=== PATIENT | male | born 1960 | race American Indian/Alaskan Native ===

== ENCOUNTER 2019-10-19 15:56 | Observation (INO) | payer OTHER ==
[2019-10-19] MEDS ORDERED: ASPIRIN 325 MG TAB PO ONE (17:42)
--- NOTE | 2019-10-19 17:46 | Event Note ---
ED Screening Note ED Screening Note: epigastric pain for several days. sent by PCP because of fliupped T waves laterally. pt with recent his of "fluid below lungs" but no formal CHF hx This initial assessment/diagnostic orders/clinical plan/treatment(s) is/are subject to change based on patients health status, clinical progression and re-assessment by fellow clinical providers in the ED. Further treatment and workup at subsequent clinical providers discretion. Patient/guardian urged not to elope from the ED as their condition may be serious if not clinically assessed and managed. Initial orders include: cmp, cbc, trop ekg CXR
--- NOTE | 2019-10-19 18:27 | XRay Report ---
CHEST 2 VIEWS INDICATION / CLINICAL INFORMATION: MAIN: Chest Pain; Pt presents by referral of PCP for abnormal EKG. Pt. denies CP but reports upper a bdominal pain and SOB. HX OF HEART ATTACK X 15 YRS. COMPARISON: None available. FINDINGS: SUPPORT DEVICES: None. HEART / MEDIASTINUM: Moderately enlarged LUNGS / PLEURA: There is venous congestion with interstitial edema. There is prominence of the right paratracheal region and right hilum as well and there could not exclude adenopathy in this area. No f ocal alveolar consolidation. No pneumothorax. ADDITIONAL FINDINGS: No significant additional findings. IMPRESSION: 1. I suspect early heart failure. Signer Name: Jadon Vincent MD Signed: 10/19/2019 6:23 PM Workstation Name: [id number]
[2019-10-19] MEDS ORDERED: ALUM-MAG HYDROXIDE-SIMETHICONE 200-200-20MG/5ML ORAL LIQD 30 ML PO ONE (18:37)
[2019-10-19] MEDS ORDERED: LIDOCAINE VISCOUS 2% 15 ML ORAL LIQD PO ONE (18:37)
[2019-10-19] MEDS ORDERED: FAMOTIDINE 20 MG/2 ML INJ IV ONE (18:37)
[2019-10-19 18:43] LABS: Basophils # (Auto) 0.1 K/mm3 (0.0-0.1); Eosinophils # (Auto) 0.1 K/mm3 (0.0-0.4); Eosinophils % (Auto) 1.6 % (0.0-4.3); Hematocrit 42.8 % (35.5-45.6); Hemoglobin 13.8 gm/dl (11.8-15.2); Lymphocytes # (Auto) 1.9 K/mm3 (1.2-5.4); Lymphocytes % (Auto) 25.4 % (13.4-35.0); Mean Corpuscular HGB Conc 32 % (32-34); Mean Corpuscular Volume 88 fl (84-94); Monocytes % (Auto) 14.1 % (0.0-7.3); Platelet Count 194 K/mm3 (140-440); Red Blood Count 4.85 M/mm3 (3.65-5.03); Red Cell Distribution Width 16.3 % (13.2-15.2)
[2019-10-19 19:03] LABS: Alanine Aminotransferase 26 units/L (7-56); BUN/Creatinine Ratio 17; Blood Urea Nitrogen 22 mg/dL (9-20); Calcium 9.2 mg/dL (8.4-10.2); Hemolysis Index 17
[2019-10-19] MEDS ORDERED: FUROSEMIDE 40 MG/4 ML INJ IV ONE (19:13)
--- NOTE | 2019-10-19 19:17 | Emergency Department Report ---
ED General Adult HPI - General Chief complaint: Dyspnea/Respdistress Stated complaint: EKG ABNORMAL Source: patient Mode of arrival: Ambulatory Limitations: No Limitations - History of Present Illness Initial comments: Patient is 59 yo AA male with a H/O CAD, HTN and chronic alcoholic who presents to the ED with c/o acute onset persistent epigastric pain and pressure, dyspnea and nausea for the last 5 days after heavy alcohol consumptions during Super Bowl celebration. Patient states that he has not been able to eat anything due to nausea and epigastric discomfort. Patient denies dizziness, fever, chills, diarrhea, headache, cough, dysuria, vision changes, palpitations, headache or hematemesis and chest pain MD Complaint: dyspnea, epigastric discomfort and pressure -: Sudden, days(s) (5) Location: abdomen Radiation: non-radiation Severity scale (0 -10): 4 Quality: aching, dull Consistency: constant Improves with: none Worsens with: none Associated Symptoms: denies other symptoms, loss of appetite, malaise, shortness of breath. denies: confusion, chest pain, cough, diaphoresis, nausea/vomiting, rash, seizure, syncope, weakness Treatments Prior to Arrival: none - Related Data Allergies Allergy/AdvReac Type Severity Reaction Status Date / Time No Known Allergies Allergy Unverified 10/19/19 16:07 ED Review of Systems ROS: Stated complaint: EKG ABNORMAL Other details as noted in HPI Constitutional: denies: chills, fever Eyes: denies: eye pain, eye discharge, vision change ENT: denies: ear pain, throat pain Respiratory: shortness of breath. denies: cough, wheezing Cardiovascular: denies: chest pain, palpitations Endocrine: no symptoms reported Gastrointestinal: abdominal pain (epigastric pressure and tightness), nausea, vomiting. denies: diarrhea Genitourinary: denies: urgency, dysuria Musculoskeletal: denies: back pain, joint swelling, arthralgia Skin: denies: rash, lesions Neurological: denies: headache, weakness, paresthesias Psychiatric: denies: anxiety, depression Hematological/Lymphatic: denies: easy bleeding, easy bruising ED Past Medical Hx - Past Medical History Previous Medical History?: Yes Hx Hypertension: Yes - Surgical History Past Surgical History?: Yes - Social History Smoking Status: Current Every Day Smoker Substance Use Type: Alcohol ED Physical Exam - General Limitations: No Limitations General appearance: alert, in no apparent distress - Head Head exam: Present: atraumatic, normocephalic, normal inspection - Eye Eye exam: Present: normal appearance, PERRL, EOMI Pupils: Present: normal accommodation - ENT ENT exam: Present: normal exam, normal orophraynx, mucous membranes moist, TM's normal bilaterally, normal external ear exam - Neck Neck exam: Present: normal inspection, full ROM - Respiratory Respiratory exam: Present: normal lung sounds bilaterally. Absent: respiratory distress, wheezes, rales, rhonchi, chest wall tenderness, accessory muscle use, decreased breath sounds, prolonged expiratory - Cardiovascular Cardiovascular Exam: Present: regular rate, normal rhythm, normal heart sounds. Absent: systolic murmur, diastolic murmur, rubs, gallop - GI/Abdominal GI/Abdominal exam: Present: soft, tenderness (Palpable epigastric and RUQ mild tendernesss), hyperactive bowel sounds. Absent: distended - Extremities Exam Extremities exam: Present: normal inspection, full ROM, normal capillary refill - Back Exam Back exam: Present: normal inspection, full ROM. Absent: tenderness, CVA tenderness (R), CVA tenderness (L), muscle spasm, vertebral tenderness - Neurological Exam Neurological exam: Present: alert, oriented X3, CN II-XII intact, normal gait, reflexes normal - Psychiatric Psychiatric exam: Present: normal affect, normal mood - Skin Skin exam: Present: warm, dry, intact, normal color. Absent: rash ED Course Vital Signs 10/19/19 10/19/19 10/19/19 16:06 18:31 19:30 Temperature 98.0 F Pulse Rate 71 66 66 Respiratory 18 16 18 Rate Blood Pressure 194/108 Blood Pressure 206/122 205/124 [Left] O2 Sat by Pulse 96 99 96 Oximetry ED Medical Decision Making - Lab Data Result diagrams: 10/19/19 18:16 10/19/19 18:16 - Radiology Data Radiology results: report reviewed, image reviewed Findings [facility] [address] [place] [address] Ultrasound Report Signed Patient: GAEL COLLINS MR#: [id number] : 1960 Acct:[id number] Age/Sex: 59 / M ADM Date: 10/19/19 Loc: ED Attending Dr: Ordering Physician: LUAN CAMPOVERDE Date of Service: 10/19/19 Procedure(s): US abdomen limited Accession Number(s): [id number] cc: LUAN CAMPOVERDE LIMITED RUQ ABDOMINAL ULTRASOUND INDICATION: epigastric discomfort. COMPARISON: No relevant prior imaging study available. FINDINGS: Pancreas: Visualized portions show no significant abnormality. Abdominal Aorta: No significant abnormality. IVC: No significant abnormality. Liver: Normal. Gallbladder: Normal. Sonographic Blair's sign: Not performed. Bile ducts: Normal. Common bile duct measures 3 mm. Free fluid: None. Additional Findings: None. IMPRESSION: 1. Normal exam. Signer Name: Dominik Padron MD Signed: 10/19/2019 9:11 PM Workstation Name: [id number] Transcribed By: RAYMUNDO Dictated By: Dominik Padron MD Electronically Authenticated By: Dominik Padron MD Signed Date/Time: 10/19/192110 DD/ 10 TD/TT: Findings [facility] [address] [place] [address] XRay Report Signed Patient: GAEL COLLINS MR#: [id number] : 1960 Acct:[id number] Age/Sex: 59 / M ADM Date: 10/19/19 Loc: ED Attending Dr: Ordering Physician: BRIDGETTE FRYE MD Date of Service: 10/19/19 Procedure(s): XR chest routine 2V Accession Number(s): [id number] cc: BRIDGETTE FRYE MD Fluoro Time In Minutes: CHEST 2 VIEWS INDICATION / CLINICAL INFORMATION: MAIN: Chest Pain; Pt presents by referral of PCP for abnormal EKG. Pt. denies CP but reports upper abdominal pain and SOB. HX OF HEART ATTACK X 15 YRS. COMPARISON: None available. FINDINGS: SUPPORT DEVICES: None. HEART / MEDIASTINUM: Moderately enlarged LUNGS / PLEURA: There is venous congestion with interstitial edema. There is prominence of the right paratracheal region and right hilum as well and there could not exclude adenopathy in this area. No focal alveolar consolidation. No pneumothorax. ADDITIONAL FINDINGS: No significant additional findings. IMPRESSION: 1. I suspect early heart failure. Signer Name: Jadon Vincent MD Signed: 10/19/2019 6:23 PM Workstation Name: [id number] Transcribed By: ISABEL Dictated By: Jadon Vincent MD Electronically Authenticated By: Jadon Vincent MD Signed Date/Time: 10/19/191822 DD/ 21 TD/TT: - Medical Decision Making This is 59 yo AA male with a H/O CAD, HTN and chronic alcoholic who presents to the ED with c/o acute onset persistent epigastric pain and pressure, dyspnea and nausea for the last 5 days after heavy alcohol consumptions during Super Bowl celebration. Patient states that he has not been able to eat anything due to nausea and epigastric discomfort. In the ED patient is alert and oriented x 3 and is in no acute distress. The chest x-ray shows a venous congestion with interstitial edema. There is prominence of the right paratracheal region and right hilum as well and there could not exclude adenopathy in this area. No focal alveolar consolidation. No pneumothorax. The Gallbladder US is unremarkable. Lab test results were reviewed and shows a BUN of 22, BNP of 4645 and Lipase of 135. Patient was treated in the ED with aspirin, also given Lasix 40mg IV x 1. These findings were discussed with the ED attending physician Dr. Abdi who agreed with plan of care. Patient's case was discussed with the Hospitalist physician reporting consultant Dr. Maciel who admitted the patient to the [facility] for further evaluation. - Differential Diagnosis CHF, CAD, Pancreatitis; Gallstones; GERD; Pneumonia Critical care attestation.: If time is entered above; I have spent that time in minutes in the direct care of this critically ill patient, excluding procedure time. ED Disposition Clinical Impression: Acute epigastric pain, Shortness of breath on exertion Acute pancreatitis Qualifiers: Pancreatitis type: alcohol induced Acute pancreatitis complication: unspecified Qualified Code(s): K85.20 - Alcohol induced acute pancreatitis without necrosis or infection CHF exacerbation Qualifiers: Heart failure type: unspecified Qualified Code(s): I50.9 - Heart failure, unspecified Disposition: OP ADMIT IP TO THIS HOSP Is pt being admited?: Yes Does the pt Need Aspirin: No Condition: Stable Instructions: Heart Failure (ED) Referrals: BEN CHIANG NP [Primary Care Provider] - 3-5 Days Time of Disposition: 22:20 Print Language: JAPANESE
--- NOTE | 2019-10-19 21:16 | Ultrasound Report ---
LIMITED RUQ ABDOMINAL ULTRASOUND INDICATION: epigastric discomfort. COMPARISON: No relevant prior imaging study available. FINDINGS: Pancreas: Visualized portions show no significant abnormality. Abdominal Aorta: No significant abnormality. IVC: No significant abnormality. Liver: Normal. Gallbladder: Normal. Sonographic Blair's sign: Not performed. Bile ducts: Normal. Common bile duct measures 3 mm. Free fluid: None. Additional Findings: None. IMPRESSION: 1. Normal exam. Signer Name: Dominik Padron MD Signed: 10/19/2019 9:11 PM Workstation Name: [id number]
[2019-10-19] MEDS ORDERED: ACETAMINOPHEN 325 MG TAB PO PRN (23:19)
[2019-10-19] MEDS ORDERED: ONDANSETRON 4 MG/2 ML INJ IV PRN (23:19)
[2019-10-19] MEDS ORDERED: MORPHINE 2 MG/1 ML INJ IV PRN (23:19)
--- NOTE | 2019-10-20 01:36 | History and Physical Report ---
History of Present Illness Date of examination: 10/19/19 Date of admission: 10/19/19 22:20 Chief complaint: 10/19/2019 History of present illness: 59-year-old -[place] male with known history of hypertension and [place] about 15 years ago presenting to the emergency room today complaining of epigastric discomfort and nausea over the past 5 days. He has also been having shortness of breath but denies any chest pain. He has had decreased appetite and has not been eating well over the past 5 days. Denies any fever or chills, no diarrhea, no headache or dizziness, no vomiting. He however admits that he has been drinking a lot of alcohol over the past few days starting on the Super Bowl night. Upon evaluation in the emergency room his work-up was significant for elevated lipase levels, elevated BNP, chest x-ray findings suggestive of heart failure. He had IV Lasix in the emergency room. He also has some analgesic medication with some relief. Past History Past Medical History: heart failure, hypertension Past Surgical History: Other (Right knee surgery, back surgery,throat surgery) Social history: smoking (current everyday smoker), alcohol abuse Family history: diabetes (in grand parents) Medications and Allergies Allergies Allergy/AdvReac Type Severity Reaction Status Date / Time No Known Allergies Allergy Unverified 10/19/19 16:07 Active Meds: Active Medications Acetaminophen (Tylenol) 650 mg PO Q4H PRN PRN Reason: Pain MILD(1-3)/Fever >100.5/ORELLANA Furosemide (Lasix) 40 mg IV BID@0600,1800 HENRY Morphine Sulfate (Morphine) 2 mg IV Q5MIN PRN PRN Reason: Chest Pain unrelieved by NTG Ondansetron HCl (Zofran) 4 mg IV Q8H PRN PRN Reason: Nausea And Vomiting Sodium Chloride (Sodium Chloride Flush Syringe 10 Ml) 10 ml IV BID HENRY Sodium Chloride (Sodium Chloride Flush Syringe 10 Ml) 10 ml IV PRN PRN PRN Reason: LINE FLUSH Review of Systems Constitutional: no fever, no chills Cardiovascular: no chest pain, no palpitations Respiratory: shortness of breath, no cough Gastrointestinal: abdominal pain, dyspepsia/bloating, no nausea, no vomiting Genitourinary Male: no dysuria, no hematuria Musculoskeletal: no neck pain, no low back pain Integumentary: no rash, no pruritis Neurological: no headaches, no change in mentation Exam - Constitutional Vitals: Temp Pulse Resp BP Pulse Ox 98.1 F 65 18 190/89 96 10/19/19 23:00 10/19/19 23:00 10/19/19 23:00 10/19/19 23:00 10/19/19 23:00 General appearance: Present: no acute distress, well-nourished - EENT Eyes: Present: PERRL, EOM intact ENT: hearing intact, clear oral mucosa, dentition normal - Neck Neck: Present: supple, normal ROM - Respiratory Respiratory: bilateral: CTA - Cardiovascular Rhythm: regular Heart Sounds: Present: S1 & S2, systolic murmur - Extremities Extremities: no ischemia, pulses intact, No edema, Full ROM Peripheral Pulses: within normal limits - Abdominal General gastrointestinal: Present: soft, tender, non-distended, normal bowel sounds Localized gastrointestinal: tender: RUQ - Integumentary Integumentary: Present: clear, warm, dry - Musculoskeletal Musculoskeletal: strength equal bilaterally - Psychiatric Psychiatric: appropriate mood/affect, intact judgment & insight, cooperative - Neurologic Neurologic: CNII-XII intact, moves all extremities Results - Labs CBC & Chem 7: 10/20/19 04:24 10/20/19 04:24 Labs: Abnormal lab results 10/19/19 10/19/19 10/19/19 Range/Units 18:16 18:16 18:16 RDW 16.3 H (13.2-15.2) % [place] % (Auto) 14.1 H (0.0-7.3) % [place] # 1.0 H (0.0-0.8) K/mm3 BUN 22 H (9-20) mg/dL Total Bilirubin 1.90 H (0.1-1.2) mg/dL NT-Pro-B Natriuret Pep 4645 H (0-900) pg/mL Lipase (13-60) units/L 10/19/19 Range/Units 18:16 RDW (13.2-15.2) % [place] % (Auto) (0.0-7.3) % [place] # (0.0-0.8) K/mm3 BUN (9-20) mg/dL Total Bilirubin (0.1-1.2) mg/dL NT-Pro-B Natriuret Pep (0-900) pg/mL Lipase 135 H (13-60) units/L Assessment and Plan - Patient Problems (1) CHF (congestive heart failure) Current Visit: Yes Status: Acute Plan to address problem: Possibly new onset. Patient was started on IV diuretics. Will monitor daily weights and also monitor input and output. We will schedule patient for echocardiogram and also place a consult to cardiology for evaluation and recommendation. (2) Acute epigastric pain Current Visit: Yes Status: Acute Plan to address problem: Possibly secondary to pancreatitis. Patient currently n.p.o. we will place on analgesic medication. (3) Acute pancreatitis Current Visit: Yes Status: Acute Qualifiers: Pancreatitis type: alcohol induced Acute pancreatitis complication: unspecified Qualified Code(s): K85.20 - Alcohol induced acute pancreatitis without necrosis or infection Plan to address problem: Possibly secondary to alcohol abuse. Will place patient on analgesic medication . Will hold off on IV fluid in view of his heart failure. We will monitor lipase levels. (4) DVT prophylaxis Current Visit: Yes Status: Acute Plan to address problem: Patient placed on subcutaneous heparin. (5) Full code status Current Visit: Yes Status: Acute
[2019-10-20 05:18] LABS: Basophils % (Auto) 0.3 % (0.0-1.8); Eosinophils # (Auto) 0.1 K/mm3 (0.0-0.4); Eosinophils % (Auto) 1.4 % (0.0-4.3); Hemoglobin 14.2 gm/dl (11.8-15.2); Lymphocytes # (Auto) 2.2 K/mm3 (1.2-5.4); Lymphocytes % (Auto) 33.9 % (13.4-35.0); Mean Corpuscular HGB Conc 33 % (32-34); Mean Corpuscular Volume 88 fl (84-94); Monocytes # (Auto) 0.8 K/mm3 (0.0-0.8); Platelet Count 166 K/mm3 (140-440); Red Blood Count 4.89 M/mm3 (3.65-5.03); Red Cell Distribution Width 16.4 % (13.2-15.2)
[2019-10-20 05:30] LABS: INR 1.06 (0.87-1.13)
[2019-10-20 05:31] LABS: Partial Thromboplastin Time 32.5 Sec. (24.2-36.6)
[2019-10-20 05:33] LABS: BUN/Creatinine Ratio 16; Blood Urea Nitrogen 19 mg/dL (9-20); Calcium 9.4 mg/dL (8.4-10.2); Hemolysis Index 1
[2019-10-20] MEDS ORDERED: HEPARIN 5,000 UNIT/1 ML VIAL SUB-Q SCH (06:00)
[2019-10-20] MEDS ORDERED: FUROSEMIDE 40 MG/4 ML INJ IV SCH (06:00)
[2019-10-20] MEDS ORDERED: hydrALAZINE 10 MG TAB PO PRN (07:13)
--- NOTE | 2019-10-20 09:16 | Consultation ---
History of Present Illness Consult date: 10/20/19 Requesting physician: JOMAR PRATT Consult reason: congestive heart failure History of present illness: 59-year-old -[place] male with history of hypertension hyperlipidemia known coronary arterial disease states having a cardiac cath at [facility] few months ago which revealed left main patent LAD patent circumflex. RCA 100% with collateralization with mild LV dysfunction. 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 Patient does have hypertensive urgency but states that his blood pressure is normal at home. Denies any chest pain nausea vomiting syncope or palpitations Past History Past Medical History: CAD, heart failure, hypertension, hyperlipidemia Past Surgical History: Other (Right knee surgery, back surgery,throat surgery) Social history: smoking (current everyday smoker), alcohol abuse Family history: diabetes (in grand parents) Medications and Allergies Allergies Allergy/AdvReac Type Severity Reaction Status Date / Time No Known Allergies Allergy Unverified 10/19/19 16:07 Home Medications Medication Instructions Recorded Confirmed Last Taken Type Aspirin [Aspirin BABY CHEW TAB] 81 mg PO QDAY 10/20/19 10/20/19 Unknown History AtorvaSTATin [Lipitor] 20 mg PO QDAY 10/20/19 10/20/19 Unknown History Furosemide [Lasix] 20 mg PO QDAY 10/20/19 10/20/19 Unknown History Lisinopril [Zestril TAB] 12.5 mg PO QDAY 10/20/19 10/20/19 Unknown History carvediloL [Coreg] 12.5 mg PO BID 10/20/19 10/20/19 Unknown History Active Meds: Active Medications Acetaminophen (Tylenol) 650 mg PO Q4H PRN PRN Reason: Pain MILD(1-3)/Fever >100.5/ORELLANA Aspirin (Baby Aspirin) 81 mg PO QDAY HENRY Atorvastatin Calcium (Lipitor) 20 mg PO QDAY [facility] Carvedilol (Coreg) 12.5 mg PO BID HENRY Furosemide (Lasix) 20 mg PO QDAY [facility] Heparin Sodium (Porcine) (Heparin) 5,000 unit SUB-Q Q8HR [facility] Last Admin: 10/20/19 06:08 Dose: 5,000 unit Documented by: Hydralazine HCl (Apresoline) 10 mg PO Q4H PRN PRN Reason: elevated BP Last Admin: 10/20/19 07:48 Dose: 10 mg Documented by: Lisinopril (Zestril) 10 mg PO BID [facility] Morphine Sulfate (Morphine) 2 mg IV Q5MIN PRN PRN Reason: Chest Pain unrelieved by NTG Ondansetron HCl (Zofran) 4 mg IV Q8H PRN PRN Reason: Nausea And Vomiting Potassium Chloride (K-Dur) 20 meq PO ONCE ONE Stop: 10/20/19 10:01 Sodium Chloride (Sodium Chloride Flush Syringe 10 Ml) 10 ml IV BID HENRY Sodium Chloride (Sodium Chloride Flush Syringe 10 Ml) 10 ml IV PRN PRN PRN Reason: LINE FLUSH Review of Systems All systems: negative (as per the HPI) Physical Examination Vital Signs Temp Pulse Resp BP Pulse Ox 98.0 F 71 18 194/108 96 10/19/19 16:06 10/19/19 16:06 10/19/19 16:06 10/19/19 16:06 10/19/19 16:06 General appearance: no acute distress, well-nourished HEENT: Positive: PERRL, Mucus Membranes Moist Neck: Positive: neck supple, trachea midline Cardiac: Positive: Reg Rate and Rhythm, S1/S2. Negative: Audible Murmur Lungs: Positive: clear to auscultation, Normal Breath Sounds Neuro: Positive: Grossly Intact Abdomen: Positive: Soft, Active Bowel Sounds. Negative: Tender, Distended Male genitourinary: Positive: normal Skin: Positive: Clear Incision: Cardiac Cath Site Musculoskeletal: No Pain, Normal Range of Motion Extremities: Present: normal. Absent: edema Results 10/20/19 04:24 10/20/19 04:24 Cardiac Enzymes 10/19/19 Range/Units 18:16 AST 19 (5-40) units/L Coagulation 10/20/19 Range/Units 04:24 PT 13.9 (12.2-14.9) Sec. INR 1.06 (0.87-1.13) APTT 32.5 (24.2-36.6) Sec. CBC 10/19/19 10/20/19 Range/Units 18:16 04:24 WBC 7.3 6.5 (4.5-11.0) K/mm3 RBC 4.85 4.89 (3.65-5.03) M/mm3 Hgb 13.8 14.2 (11.8-15.2) gm/dl Hct 42.8 43.0 (35.5-45.6) % Plt Count 194 166 (140-440) K/mm3 Lymph # 1.9 2.2 (1.2-5.4) K/mm3 [place] # 1.0 H 0.8 (0.0-0.8) K/mm3 Eos # 0.1 0.1 (0.0-0.4) K/mm3 Baso # 0.1 0.0 (0.0-0.1) K/mm3 Comprehensive Metabolic Panel 10/19/19 10/20/19 Range/Units 18:16 04:24 Sodium 143 143 (137-145) mmol/L Potassium 3.8 3.3 L (3.6-5.0) mmol/L Chloride 104.3 101.5 (98-107) mmol/L Carbon Dioxide 24 27 (22-30) mmol/L BUN 22 H 19 (9-20) mg/dL Creatinine 1.3 1.2 (0.8-1.5) mg/dL Glucose 87 86 (75-100) mg/dL Calcium 9.2 9.4 (8.4-10.2) mg/dL AST 19 (5-40) units/L ALT 26 (7-56) units/L Alkaline Phosphatase 113 (35-129) units/L Total Protein 7.4 (6.3-8.2) g/dL Albumin 4.0 (3.9-5) g/dL - Imaging and Cardiology Cardiac cath: report reviewed ( left main patent LAD patent circumflex. RCA 100% with collateralization with mild LV dysfunction) EKG interpretations - Telemetry EKG Rhythm: Sinus Bradycardia (sinus bradycardia and nonspecific ST-T's) Assessment and Plan Continue home medications increase lisinopril to 10 mg twice a day replace potassium change Lasix to oral follow up echocardiogram. Blood pressure has improved this afternoon may be discharged from a cardiovascular point of view patient unexpectedly has improved that's initiating possible discharge today. Follow with primary beam house inspector Dr. Dee at [place] And primary care doctor 1 week. Again discussed with patient about the need for dietary discretion and smoking cessation - Patient Problems (1) CAD (coronary artery disease) Current Visit: Yes Status: Chronic Qualifiers: Coronary Disease-Associated Artery/Lesion type: [place] artery [place] vs. transplanted heart: [place] heart Associated angina: without angina Qualified Code(s): I25.10 - Atherosclerotic heart disease of [place] coronary artery without angina pectoris (2) Hyperlipemia, mixed Current Visit: Yes Status: Chronic (3) Accelerated hypertension Current Visit: Yes Status: Acute (4) Acute pancreatitis Current Visit: Yes Status: Acute Qualifiers: Pancreatitis type: alcohol induced Acute pancreatitis complication: unspecified Qualified Code(s): K85.20 - Alcohol induced acute pancreatitis without necrosis or infection (5) CHF exacerbation Current Visit: Yes Status: Acute Qualifiers: Heart failure type: systolic Qualified Code(s): I50.23 - Acute on chronic systolic (congestive) heart failure (6) Shortness of breath on exertion Current Visit: Yes Status: Acute
[2019-10-20] MEDS ORDERED: POTASSIUM CHLORIDE ER 20 MEQ TAB PO ONE (10:00)
[2019-10-20] MEDS ORDERED: FUROSEMIDE 20 MG TAB PO SCH (10:00)
[2019-10-20] MEDS ORDERED: LISINOPRIL 10 MG TAB PO SCH (10:00)
[2019-10-20] MEDS ORDERED: carvediloL 12.5 MG TAB PO SCH (10:00)
[2019-10-20] MEDS ORDERED: ASPIRIN 81 MG TAB CHEW PO SCH (10:00)
--- NOTE | 2019-10-20 10:08 | Discharge Summary ---
Providers - Providers Date of Admission: 10/19/19 22:20 Attending physician: JOMAR PRATT MD 10/20/19 06:24 Consult to Physician [CONS] Routine Comment: Consulting Provider: ANAIS TIDWELL Physician Instructions: Reason For Exam: congestive heart failure- new onset Primary care physician: BEN CHIANG NP Hospitalization Reason for admission: CHF, abdominal pain Condition: Stable Hospital course: 59-year-old -[place] male with known history of hypertension and IA about 15 years ago presenting to the emergency room today complaining of epigastric discomfort and nausea over the past 5 days. He has also been having shortness of breath but denies any chest pain. He has had decreased appetite and has not been eating well over the past 5 days. Denies any fever or chills, no diarrhea, no headache or dizziness, no vomiting. He however admits that he has been drinking a lot of alcohol over the past few days starting on the Super Bowl night. Upon evaluation in the emergency room his work-up was significant for elevated lipase levels, elevated BNP, chest x-ray findings suggestive of heart failure. He had IV Lasix in the emergency room. He also has some analgesic medication with some relief. Patient was evaluated by cardiology, echocardiogram reviewed. Patient was diuresed following evaluation of echocardiogram cardiology made a decision the patient should increase lisinopril to 10 mg twice a day with potassium replacement. The patient reports that every hospitalization that his systolic blood pressures consistently higher than 180 but comes down to 140 at home I did discuss the theory of whitecoat syndrome according to the patient and reported that the patient needs a bit optimize blood pressure management. He will follow-up with his primary care physician for this. We also did discuss binge drinking for which the patient states that he does extensive counseling greater than 50 minutes provided on lifestyle changes and how this is associated with pancreatitis patient verbalized understanding Advised at this time hydration and also soft diet if hungry until pancreas heals appropriately Acute on chronic systolic congestive heart failure-with exacerbation secondary to dietary discretion Acute epigastric pain likely secondary to mild resolving pancreatitis Acute pancreatitis now resolving EtOH abuse Hyperbilirubinemia CAD Mixed hyperlipidemia Accelerated hypertension Tobacco use disorder-as of counseling provided on need to quit 50 minutes counseling provided Disposition: - TO HOME OR SELFCARE Time spent for discharge: 35 mins Core Measure Documentation - Palliative Care Palliative Care/ Comfort Measures: Not Applicable - Core Measures Any of the following diagnoses?: heart failure - Heart Failure Discharge Requirements RAMON/ARB for LVSD if EF <40%: Yes Beta joseph at discharge: Yes Exam - Physical Exam Narrative exam: VITAL SIGNS: Reviewed. GENERAL: The patient appears normally developed, Vital signs as documented. HEAD: No signs of head trauma. EYES: Pupils are equal. Extraocular motions intact. EARS: Hearing grossly intact. MOUTH: Oropharynx is normal. NECK: No adenopathy, no JVD. CHEST: Chest with clear breath sounds bilaterally. No wheezes, rales, or rhonchi. CARDIAC: Regular rate and rhythm. S1 and S2, without murmurs, gallops, or rubs. VASCULAR: No Edema. Peripheral pulses normal and equal in all extremities. ABDOMEN: Soft, non tender and non distended. No rebound or guarding, and no masses palpated. Bowel Sounds normal. MUSCULOSKELETAL: Good range of motion of all major joints. Extremities without clubbing, cyanosis or edema. NEUROLOGIC EXAM: Alert and oriented x 3 No focal sensory or strength deficits. Speech normal. Follows commands. PSYCHIATRIC: Mood normal. SKIN: detial exam as documented in skin assessment - Constitutional Vitals: Temp Pulse Resp BP Pulse Ox 97.7 F 63 20 204/107 87 10/20/19 05:14 10/20/19 09:01 10/20/19 05:14 10/20/19 09:01 10/20/19 05:14 Plan Activity: advance as tolerated, fall precautions Diet: low fat, low salt Special Instructions: record daily weights, record daily BP diary Additional Instructions: repeat labs CBC and CMP in 3-5 days with pcp. Follow with bookkeeping clerks supervisor Dr. Dee at [facility] Follow up with: BEN CHIANG NP [Primary Care Provider] - 3-5 Days NETTA HERNÁNDEZ MD [Staff Physician] - 7 Days
[2019-10-20] MEDS ORDERED: hydrALAZINE 20 MG/1 ML INJ IV ONE (13:00)
[2019-10-20 13:53] VITALS: BP 170/85
[2019-10-20] MEDS ORDERED: hydrALAZINE 20 MG/1 ML INJ IV SCH (14:00)
== END 2019-10-20 14:53 | disposition home or self-care (01) ==
LOC: ED 15:56 → 3A 22:20
PROVIDERS: ADMIT Internal Medicine Geriatric Medicine; ATTEND Internal Medicine
DX: K85.20 Alcohol induced acute pancreatitis without necrosis or infection (principal); I11.0 Hypertensive heart disease with heart failure; I50.23 Acute on chronic systolic (congestive) heart failure; I25.10 Atherosclerotic heart disease of native coronary artery without angina pectoris; E78.5 Hyperlipidemia, unspecified; F10.10 Alcohol abuse, uncomplicated; I25.2 Old myocardial infarction; F17.200 Nicotine dependence, unspecified, uncomplicated; Z79.899 Other long term (current) drug therapy
CPT/HCPCS: 36415; 71046; 76705; 80048; 80053; 83690; 83880; 84484; 85025; 85610; 85730; 93005; 93010; 93306; 96372; 96374; 96375; 96376; 99284; A9270; G0378; J0360; J1644; J1940